=== PATIENT | male | born 1975 | race Native Hawaiian/Other Pacific Islander ===

== ENCOUNTER 2018-01-07 10:43 | Emergency (ER) | payer BC ==
[~2018-01-07] VITALS: Ht 172.7 cm; Wt 79.4 kg
[2018-01-07 10:52] VITALS: BP 130/90; TEMP 97.8
== END 2018-01-07 12:27 | disposition home or self-care (01) ==
LOC: ED 10:43
PROC: 0HQFXZZ Repair Right Hand Skin, External Approach (ICD-10-PCS; principal; 2018-01-07)
PROC: 2W3JX1Z Immobilization of Right Finger using Splint (ICD-10-PCS; 2018-01-07)
DX: S61.210A Laceration without foreign body of right index finger without damage to nail, initial encounter (principal); W26.0XXA Contact with knife, initial encounter
CPT/HCPCS: 90471; 99283